=== PATIENT | female | born 1945 | race Caucasian/White ===

== ENCOUNTER 2019-05-29 08:37 | Outpatient (CLI) | payer MEDICARE ==
--- NOTE | 2019-06-21 16:23 | MMO ---
Bilateral MAMMO Bilat Screen [facility]. CLINICAL HISTORY: Patient is 74 years old and is seen for screening. The patient has no family history of breast cancer. The patient has a history of thyroid cancer. The patient has a history of Stereotatic Biopsy - benign. VIEWS: The views performed were: bilateral craniocaudal with tomosynthesis and bilateral mediolateral oblique with tomosynthesis. FILMS COMPARED: The present examination has been compared to prior imaging studies performed at [facility] on 08/15/2014 and 05/19/2016. This study has been interpreted with the assistance of computer-aided detection. MAMMOGRAM FINDINGS: There are scattered fibroglandular densities. There are stable benign appearing calcifications seen in both breasts. There are no suspicious masses, suspicious calcifications, or new areas of architectural distortion. IMPRESSION: THERE IS NO MAMMOGRAPHIC EVIDENCE OF MALIGNANCY. A ROUTINE FOLLOW-UP MAMMOGRAM IN 1 YEAR IS RECOMMENDED. THE RESULTS OF THIS EXAM WERE SENT TO THE PATIENT. ACR BI-RADS Category 2 - Benign finding MAMMOGRAPHY NOTE: 1. A negative mammogram report should not delay a biopsy if a dominant of clinically suspicious mass is present. 2. Approximately 10% to 15% of breast cancers are not detected by mammography. 3. Adenosis and dense breasts may obscure an underlying neoplasm. Reported by: DION CUELLO MD Electonically Signed: [id number]
== END 2019-05-29 08:38 | disposition home or self-care (01) ==
LOC: BICMAMMO 08:37
PROVIDERS: ATTEND Internal Medicine
DX: Z12.31 Encounter for screening mammogram for malignant neoplasm of breast (principal); Z91.89 Other specified personal risk factors, not elsewhere classified; Z85.850 Personal history of malignant neoplasm of thyroid
CPT/HCPCS: 77063; 77067

== ENCOUNTER 2019-07-05 11:23 | Outpatient (CLI) | payer MEDICARE ==
[2019-07-05 13:16] LABS: Hemoglobin 14.8 g/dL (12.0-16.0); Mean Corpuscular HGB CONC 35.4 g/dL (32.0-36.0); Mean Corpuscular Hemoglobin 30.9 pg (27.0-31.0); Mean Corpuscular Volume 87.2 fL (78.0-98.0); Mean Platelet Volume 8.6 fL (7.4-10.4); Platelet Count 224 thou/uL (130-400); RBC Distribution Width 12.4 % (11.5-14.5); Red Blood Cell (RBC) Count 4.77 mill/uL (4.20-5.40); White Blood Cell (WBC) Count 6.8 thou/uL (4.8-10.8)
[2019-07-05 13:35] LABS: Anion Gap 17 mmol/L (10-20); BUN (Urea Nitrogen) 22 mg/dL (9.8-20.1); Calc. Creatinine Clearance 0 mL/min (70-130); Calcium 9.6 mg/dL (7.8-10.44); Carbon Dioxide 24 mmol/L (23-31); Chloride 99 mmol/L (98-107); Estimated GFR-MDRD 60; Glucose 143 mg/dL (83-110); Potassium 3.9 mmol/L (3.5-5.1); Sodium 136 mmol/L (136-145)
== END 2019-07-05 11:24 | disposition home or self-care (01) ==
LOC: LABBT 11:23
PROVIDERS: ATTEND Surgery Surgery of the Hand
DX: Z01.812 Encounter for preprocedural laboratory examination (principal); G56.02 Carpal tunnel syndrome, left upper limb; M19.032 Primary osteoarthritis, left wrist
CPT/HCPCS: 80048; 85027

== ENCOUNTER 2019-07-08 05:55 | Day surgery (SDC) | payer MEDICARE ==
[2019-07-05 11:41] VITALS: BMI 33.6
[2019-07-08] MEDS ORDERED: Bupivacaine HCl 0.5%/Epinephrine 1:200,000/PF 30 ml Vial ONE (06:56)
[2019-07-08] MEDS ORDERED: Lidocaine 1% w/Epinephrine 1:100K 20 ML VIAL ONE (07:41)
[2019-07-08] MEDS ORDERED: Bupivacaine 0.25% HCL 30 ML VIAL ONE (07:41)
[2019-07-08] MEDS ORDERED: Fentanyl 100 MCG/2 ML VIAL ONE (07:48)
--- NOTE | 2019-07-08 10:51 | OP ---
DATE OF PROCEDURE: 07/08/2019 PREOPERATIVE DIAGNOSES: Left-sided recurrent carpal tunnel syndrome and left wrist arthritis. POSTOPERATIVE DIAGNOSES: Left-sided recurrent carpal tunnel syndrome and left wrist arthritis. PROCEDURES PERFORMED: 1. Left wrist median nerve neurolysis and application of a synthetic nerve wrap/Integra NeuraWrap. 2. Left wrist partial denervation with anterior and posterior interosseous neurectomies. 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 ANESTHESIA: General and local. FINDINGS: Scar tissue surrounding the median nerve, which appeared to be severely scarred and displaced radially underneath the radial leaf of the transected transverse carpal ligament and there appeared to be a mild hourglass configuration to the nerve at the carpal tunnel; left wrist arthritis. SPECIMENS: Anterior and posterior interosseous nerves left wrist. CONDITION: Stable. ESTIMATED BLOOD LOSS: Less than 10 mL. TOURNIQUET TIME: Left wrist median nerve neurolysis and application of the nerve wrap 30 minutes and the tourniquet was deflated during skin closure of this wound followed by reinflation of the tourniquet for 28 minutes to perform the posterior interosseous and anterior interosseous neurectomies, left wrist. For a total of 58 minutes of tourniquet time with at least a 15 to 20-minute break in between the procedures. INDICATIONS FOR PROCEDURE: The patient is a 74-year-old female, who was seen in my clinic for treatment of left hand numbness and tingling and left wrist pain. She appeared to be suffering from a recurrent carpal tunnel syndrome on the left side as well as left wrist arthritis. We discussed the surgical and nonsurgical treatments for each, the patient wished to proceed with surgery. I gave her a lidocaine block to the anterior and posterior interosseous nerves in the clinic in order to gauge her response to a partial wrist denervation and she had a favorable response reporting almost immediate pain relief after the lidocaine block was administered. Therefore, the decision was made today to proceed with the left wrist median nerve neurolysis and application of a Bovine synthetic nerve wrap/Integra NeuraWrap as well as partial wrist denervation anterior interosseous and posterior interosseous neurectomies. DESCRIPTION OF PROCEDURE: The patient was brought to the operating room and placed supine on the operating room table. Time-out was performed. Antibiotics had been administered. General anesthesia was induced by the Anesthesia Team. A left upper extremity tourniquet was applied. Left upper extremity was then prepped and draped under sterile aseptic conditions. Left upper extremity was exsanguinated using an Esmarch wrap and the tourniquet was inflated 250 mmHg. My attention was directed towards the left wrist median nerve neurolysis part of the procedure first. Her previous skin incision was utilized and incised and then, the incision was brought across the volar wrist flexion crease proximally in Viet's fashion. Care was taken to avoid any injury to the underlying median nerve and the median nerve was identified proximally. Care was taken only to take the skin incision skin deep. I was able to locate this median nerve proximally and then dissected free from its scar tissue, it appeared to be severely scarred around the carpal tunnel. There was an hourglass configuration to it. It was scarred onto the undersurface of the radial leaf at the previously transected transverse carpal ligament. Extreme care and caution were taken in all times in order to protect the median nerve and avoid any injury to the median nerve or nerve branches of the palmar cutaneous branch of median nerve was identified and protected at all times. The median nerve was meticulously released from all its surrounding scar tissue, then a 2 cm x 10 mm nerve wrap was prepped in saline and placed around the median nerve within the carpal tunnel and used to protect it from any other further scar tissue. I did secure the nerve wrap with a loosely tightened 7-0 Prolene suture. The wound was irrigated. There was local infiltrated into the skin and the area of the skin incision prior to making the skin incision, administered some additional local anesthetic was infiltrated at the end of the skin to help with postoperative pain. The tourniquet was deflated. Good hemostasis was ensured using a handheld Adson bipolar. The skin incision was primarily repaired using 4-0 nylon suture, all fingers returned to a normal pink color with good refill following tourniquet deflation. The left upper extremity was then exsanguinated. Again, once the skin incision was closed and then, the tourniquet was reinflated, total tourniquet time at this point was 30 minutes and it had been deflated for at least 15 to 20 minutes before proceeding with the second procedure. My attention was now directed towards wrist denervation part of the procedure. A longitudinal incision was made into the skin after local anesthetic was infiltrated into the skin and area predicted the skin incision in-line with the third metacarpal ray. Care was taken only to go skin deep and avoid injury to the surrounding nerves, tendons, and blood vessels. The extensor retinaculum was incised sharply using a fresh 15 blade scalpel. The fourth dorsal compartment tendons were protected at all times. The EPL tendon was identified and protected at all times as well. Over the radial floor of the fourth dorsal compartment, I was able to identify the posterior interosseous nerve and I resected a 1 cm portion in the nerve. I then dissected proximally within the interosseous membrane was able to be localize the anterior interosseous nerve and the portion of the anterior interosseous nerve was resected, both were sent for pathologic specimen. Good hemostasis was ensured using a handheld bipolar Adson's and the wounds were irrigated, this retinaculum was repaired over the fourth dorsal compartment tendons. Care was taken not to overtighten the repair in order to avoid strangulation of the extensor tendons. I was able to fit a freer easily underneath the repair and once it was completed and then I deflated the tourniquet, I added some additional local anesthetic and then repaired the skin incision using 4-0 nylon sutures. All fingers resumed to be normal pink color with good refill. Once the tourniquet was deflated, Xeroform was applied over the wounds along with bulky dressing, Kerlix, ABDs, and an Danny wrap. The patient was extubated and transported back to the recovery area in stable condition. I had a conversation with the patient's daughter Wade. I called her on [phone] to give her an update on her surgery, everything went well. There were no complications during the surgery. I explained the postoperative plan with the patient's daughter. The patient was discharged home on tramadol 50 mg 1 to 2 tablets p.o. q.6 hours and 30 pills were prescribed. Job ID: [id number]
== END 2019-07-08 11:10 | disposition home or self-care (01) ==
LOC: SDC 05:55
PROVIDERS: ATTEND Surgery Surgery of the Hand
PROC: 01N50ZZ Release Median Nerve, Open Approach (ICD-10-PCS; principal; 2019-07-08)
PROC: 01B50ZZ Excision of Median Nerve, Open Approach (ICD-10-PCS; 2019-07-08)
PROC: 01B60ZZ Excision of Radial Nerve, Open Approach (ICD-10-PCS; 2019-07-08)
PROC: 01U50JZ Supplement Median Nerve with Synthetic Substitute, Open Approach (ICD-10-PCS; 2019-07-08)
DX: G56.02 Carpal tunnel syndrome, left upper limb (principal); M19.032 Primary osteoarthritis, left wrist; E11.9 Type 2 diabetes mellitus without complications; Z79.899 Other long term (current) drug therapy; Z88.5 Allergy status to narcotic agent; Z88.8 Allergy status to other drugs, medicaments and biological substances
CPT/HCPCS: 88302; J0670; J0690; J3010; S0020

== ENCOUNTER 2020-12-11 08:56 | Outpatient (CLI) | payer MEDICARE ==
[2020-12-11 13:07] LABS: Hemoglobin 13.7 g/dL (12.0-15.5); Mean Corpuscular HGB CONC 34.3 g/dL (32.0-36.0); Mean Corpuscular Volume 87.3 fl (81.6-98.3); Mean Platelet Volume 11.4 fl (7.4-10.4); Platelet Count 249 10x3/uL (150-450); RBC Distribution Width 12.8 % (11.5-14.5); Red Blood Cell (RBC) Count 4.57 10x6/uL (3.90-5.03); White Blood Cell (WBC) Count 6.5 10x3/uL (3.5-10.5)
[2020-12-11 13:13] LABS: Anion Gap 17 mmol/L (10-20); BUN (Urea Nitrogen) 23 mg/dL (9.8-20.1); Calc. Creatinine Clearance 0 mL/min (70-130); Calcium 8.9 mg/dL (7.8-10.44); Carbon Dioxide 28 mmol/L (23-31); Chloride 99 mmol/L (98-107); Glucose 160 mg/dL (83-110); Potassium 3.8 mmol/L (3.5-5.1); Sodium 140 mmol/L (136-145)
[2020-12-11 13:21] LABS: PTT 27.9 sec (22.0-33.0); Prothrombin Time 10.3 sec (9.5-12.1)
[2020-12-11 23:52] LABS: SARS-CoV-2 PCR by NAA Not Detected (NotDetected)
== END 2020-12-11 08:57 | disposition home or self-care (01) ==
LOC: LABBT 08:56
PROVIDERS: ATTEND Internal Medicine Cardiovascular Disease
DX: Z01.818 Encounter for other preprocedural examination (principal); Z20.822 Contact with and (suspected) exposure to COVID-19
CPT/HCPCS: 80048; 85027; 85610; 85730; 93005; U0003; U0005; 87635; 93010

== ENCOUNTER 2020-12-14 06:00 | Observation (INO) | payer MEDICARE ==
[2020-12-10 14:37] VITALS: BMI 31.9
[2020-12-14] MEDS ORDERED: Heparin 10,000 UNITS/ 10 ML VIAL ONE (06:45)
[2020-12-14] MEDS ORDERED: Lidocaine 1% (PF) 30 ML VIAL ONE ×2 (06:46→06:59)
[2020-12-14] MEDS ORDERED: Fentanyl 100 MCG/2 ML VIAL ONE ×3 (07:08→11:45)
[2020-12-14] MEDS ORDERED: Midazolam HCl 2 mg/2 ml Vial ONE (07:30)
[2020-12-14] MEDS ORDERED: Lidocaine 1% PF 5 ML VIAL ONE (07:47)
[2020-12-14] MEDS ORDERED: Ondansetron PF 4 MG/2 ML Vial ONE (07:47)
[2020-12-14] MEDS ORDERED: Rocuronium Bromide 10 MG/ML (10ML VIAL) ONE (07:47)
[2020-12-14] MEDS ORDERED: PHENYLEPHRINE-NS 100 MCG/ML 10 ML SYRINGE ONE (07:47)
[2020-12-14] MEDS ORDERED: Dexamethasone 20 MG/5 ML VIAL ONE (07:47)
[2020-12-14] MEDS ORDERED: PROPOFOL 200 MG/20 ML VIAL ONE (07:47)
[2020-12-14] MEDS ORDERED: Heparin 25,000 units/D5W 500 ML ONE (07:54)
[2020-12-14] MEDS ORDERED: Isoproterenol 0.2 MG/1 ML AMP ONE (10:25)
[2020-12-14] MEDS ORDERED: Protamine Sulfate 50 MG/5 ML VIAL ONE (10:47)
[2020-12-14] MEDS ORDERED: SUGAMMADEX SODIUM 200 MG/2 ML VIAL ONE (10:55)
[2020-12-14] MEDS ORDERED: Ondansetron HCl/PF 4 MG/2 ML Vial IVP PRN (11:34)
[2020-12-14] MEDS ORDERED: HYDROmorphone 2 MG/ML VIAL SLOW IVP PRN (11:34)
[2020-12-14] MEDS ORDERED: Promethazine HCl 25 MG/ML VIAL SLOW IVP PRN (11:34)
[2020-12-14] MEDS ORDERED: Promethazine HCl 25 MG/ML VIAL IM PRN (11:34)
[2020-12-14] MEDS ORDERED: Ketorolac Tromethamine 30 MG/ML VIAL IVP PRN (12:15)
[2020-12-14] MEDS ORDERED: Acetaminophen/Codeine 30-300mg Tablet PO PRN ×2 (12:30)
[2020-12-14] MEDS: metFORMIN 500 MG TAB PO SCH (18:23)
[2020-12-14] MEDS ORDERED: Cepastat Lozenges 1 LOZ PO PRN (18:33)
[2020-12-14] MEDS ORDERED: Simvastatin 5 MG TAB PO SCH (21:00)
[2020-12-14] MEDS ORDERED: Lisinopril 5 MG TAB PO SCH (21:00)
[2020-12-14] MEDS: Apixaban 5 MG TAB PO SCH (21:21)
[2020-12-14] MEDS: Sucralfate 1 GM TAB PO SCH (21:22)
[2020-12-15] MEDS ORDERED: Sucralfate 1 GM TAB PO SCH (03:45)
[2020-12-15] MEDS ORDERED: Levothyroxine Sodium 112 MCG TAB PO SCH (06:00)
[2020-12-15] MEDS ORDERED: Levothyroxine Sodium 25 MCG TAB PO SCH (06:00)
[2020-12-15] MEDS: Sucralfate 1 GM TAB PO SCH ×2 (08:08→12:11)
[2020-12-15] MEDS: Apixaban 5 MG TAB PO SCH (08:09)
[2020-12-15] MEDS: metFORMIN 500 MG TAB PO SCH (08:09)
[2020-12-15] MEDS ORDERED: Carvedilol 25 MG TAB PO SCH (09:00)
[2020-12-15] MEDS ORDERED: Montelukast Sodium 10 mg Tablet PO SCH (09:00)
[2020-12-15] MEDS ORDERED: Multivit, Therapeutic 1 TAB PO SCH (09:00)
[2020-12-15] MEDS ORDERED: Triamterene/Hydrochlorothiazide 37.5 mg/25 mg Tablet PO SCH (09:00)
[2020-12-15 12:16] VITALS: BP 83/43; TEMP 98.8
== END 2020-12-15 14:21 | disposition home or self-care (01) ==
LOC: CCL 06:00 → 2SW 11:36
PROVIDERS: ADMIT Internal Medicine Cardiovascular Disease; ATTEND Internal Medicine Cardiovascular Disease
PROC: 02583ZZ Destruction of Conduction Mechanism, Percutaneous Approach (ICD-10-PCS; principal; 2020-12-14)
PROC: 02K83ZZ Map Conduction Mechanism, Percutaneous Approach (ICD-10-PCS; 2020-12-14)
PROC: 4A023FZ Measurement of Cardiac Rhythm, Percutaneous Approach (ICD-10-PCS; 2020-12-14)
PROC: 4A0234Z Measurement of Cardiac Electrical Activity, Percutaneous Approach (ICD-10-PCS; 2020-12-14)
DX: I48.0 Paroxysmal atrial fibrillation (principal); I10 Essential (primary) hypertension; E89.0 Postprocedural hypothyroidism; D68.9 Coagulation defect, unspecified; E11.9 Type 2 diabetes mellitus without complications; E78.5 Hyperlipidemia, unspecified; K21.9 Gastro-esophageal reflux disease without esophagitis; Z79.01 Long term (current) use of anticoagulants; Z79.84 Long term (current) use of oral hypoglycemic drugs; Z79.899 Other long term (current) drug therapy; Z88.5 Allergy status to narcotic agent; Z88.8 Allergy status to other drugs, medicaments and biological substances; Z91.041 Radiographic dye allergy status; Z95.818 Presence of other cardiac implants and grafts
CPT/HCPCS: 76942; 82962 ×2; 85347 ×2; 93005 ×2; 93613; 93622; 93623; 93656; 93657; 93662; 96374; C1732 ×3; C1759; G0378 ×2; 36416; 93010; J1100; J1644; J1885; J2001; J2250; J2405; J2704; J2720; J3010

== ENCOUNTER 2021-01-22 09:05 | Outpatient (CLI) | payer MEDICARE | END 2021-01-22 09:06 | disposition home or self-care (01) | LOC: BICMAMMO 09:05 | PROVIDERS: ATTEND Internal Medicine | DX: Z12.31 Encounter for screening mammogram for malignant neoplasm of breast (principal); Z85.850 Personal history of malignant neoplasm of thyroid | CPT/HCPCS: 77063; 77067 ==

== ENCOUNTER 2021-07-15 08:15 | Outpatient (CLI) | payer MEDICARE ==
[2021-07-15 10:36] LABS: Hemoglobin 13.9 g/dL (12.0-15.5); Mean Corpuscular HGB CONC 34.8 g/dL (32.0-36.0); Mean Corpuscular Hemoglobin 30.3 pg (27.0-33.0); Mean Corpuscular Volume 87.1 fl (81.6-98.3); Mean Platelet Volume 11.1 fl (7.4-10.4); Platelet Count 231 10x3/uL (150-450); RBC Distribution Width 13.1 % (11.5-14.5); Red Blood Cell (RBC) Count 4.59 10x6/uL (3.90-5.03); White Blood Cell (WBC) Count 7.2 10x3/uL (3.5-10.5)
[2021-07-15 10:41] LABS: PTT 29.3 sec (22.0-33.0); Prothrombin Time 11.3 sec (9.5-12.1)
[2021-07-15 10:51] LABS: Anion Gap 17 mmol/L (10-20); BUN (Urea Nitrogen) 24 mg/dL (9.8-20.1); Calc. Creatinine Clearance 0 mL/min (70-130); Calcium 8.9 mg/dL (7.8-10.44); Carbon Dioxide 27 mmol/L (23-31); Chloride 100 mmol/L (98-107); Glucose 147 mg/dL (83-110); Potassium 3.8 mmol/L (3.5-5.1); Sodium 140 mmol/L (136-145)
[2021-07-15 17:30] LABS: SARS-CoV-2 PCR by NAA Not Detected (NotDetected)
== END 2021-07-15 08:16 | disposition home or self-care (01) ==
LOC: LABBT 08:15
PROVIDERS: ATTEND Internal Medicine Cardiovascular Disease
DX: Z01.812 Encounter for preprocedural laboratory examination (principal); Z20.822 Contact with and (suspected) exposure to COVID-19
CPT/HCPCS: 80048; 85027; 85610; 85730; U0003; U0005

== ENCOUNTER 2021-07-19 06:20 | Day surgery (SDC) | payer MEDICARE ==
[2021-07-15 14:35] VITALS: BMI 31.7
[2021-07-19] MEDS ORDERED: Fentanyl 100 MCG/2 ML VIAL ONE (06:47)
[2021-07-19] MEDS ORDERED: Ketamine 50 MG/ML (10ML VIAL) ONE (06:48)
[2021-07-19] MEDS ORDERED: Phenylephrine 10 MG/ML VIAL ONE (06:48)
[2021-07-19] MEDS ORDERED: Heparin 10,000 UNITS/ 10 ML VIAL ONE (06:57)
[2021-07-19] MEDS ORDERED: Heparin 25,000 units/D5W 500 ML ONE (06:57)
[2021-07-19] MEDS ORDERED: Isoproterenol 0.2 MG/1 ML AMP ONE (07:02)
[2021-07-19] MEDS ORDERED: Succinylcholine 200 MG/10 ml SYRINGE FS ONE (07:29)
[2021-07-19] MEDS ORDERED: Lidocaine 1% PF 5 ML VIAL ONE (07:29)
[2021-07-19] MEDS ORDERED: PROPOFOL 200 MG/20 ML VIAL ONE (07:29)
[2021-07-19] MEDS ORDERED: Calcium Chloride 1 GM/10 ML Abboject SYRINGE ONE (07:29)
[2021-07-19] MEDS ORDERED: Dexamethasone 20 MG/5 ML VIAL ONE (07:29)
[2021-07-19] MEDS ORDERED: Glycopyrrolate 0.2 MG/ML 5 ML SYRINGE ONE (07:29)
[2021-07-19] MEDS ORDERED: Rocuronium Bromide 10 MG/ML (10ML VIAL) ONE (07:29)
[2021-07-19] MEDS ORDERED: Ondansetron PF 4 MG/2 ML Vial ONE (07:29)
[2021-07-19] MEDS ORDERED: SUGAMMADEX SODIUM 200 MG/2 ML VIAL ONE (08:31)
[2021-07-19] MEDS ORDERED: Protamine Sulfate 50 MG/5 ML VIAL ONE (10:39)
[2021-07-19] MEDS ORDERED: Furosemide 40 MG TAB PO PRN (14:57)
[2021-07-19] MEDS ORDERED: Potassium Chloride 20 MEQ TAB PO PRN (14:57)
[2021-07-19] MEDS ORDERED: Sucralfate 1 GM TAB PO SCH (17:00)
== END 2021-07-19 14:51 | disposition home or self-care (01) ==
LOC: SDC 06:20
PROVIDERS: ATTEND Internal Medicine Cardiovascular Disease
PROC: B244ZZ3 Ultrasonography of Right Heart, Intravascular (ICD-10-PCS; principal; 2021-07-19)
PROC: 02583ZZ Destruction of Conduction Mechanism, Percutaneous Approach (ICD-10-PCS; 2021-07-19)
PROC: 02K83ZZ Map Conduction Mechanism, Percutaneous Approach (ICD-10-PCS; 2021-07-19)
PROC: 4A023FZ Measurement of Cardiac Rhythm, Percutaneous Approach (ICD-10-PCS; 2021-07-19)
PROC: 4A0234Z Measurement of Cardiac Electrical Activity, Percutaneous Approach (ICD-10-PCS; 2021-07-19)
DX: I48.0 Paroxysmal atrial fibrillation (principal); I48.4 Atypical atrial flutter; E89.0 Postprocedural hypothyroidism; D66 Hereditary factor VIII deficiency; E11.9 Type 2 diabetes mellitus without complications; I10 Essential (primary) hypertension; E78.5 Hyperlipidemia, unspecified; K21.9 Gastro-esophageal reflux disease without esophagitis; Z86.73 Personal history of transient ischemic attack (TIA), and cerebral infarction without residual deficits; Z79.01 Long term (current) use of anticoagulants; Z79.82 Long term (current) use of aspirin; Z79.84 Long term (current) use of oral hypoglycemic drugs; Z79.899 Other long term (current) drug therapy; Z88.8 Allergy status to other drugs, medicaments and biological substances; Z88.5 Allergy status to narcotic agent; Z91.041 Radiographic dye allergy status; Z91.048 Other nonmedicinal substance allergy status; Z95.818 Presence of other cardiac implants and grafts; Z98.890 Other specified postprocedural states
CPT/HCPCS: 85347 ×2; 93005; 93613; 93623; 93656; 93657; 93662; C1732 ×2; C1759; C1884; J1100; J1644; J2370; J2405; J2704; J2720; J3010

== ENCOUNTER 2022-01-24 10:08 | Outpatient (CLI) | payer MEDICARE | END 2022-01-24 10:09 | disposition home or self-care (01) | LOC: BICMAMMO 10:08 | PROVIDERS: ATTEND Internal Medicine | DX: Z12.31 Encounter for screening mammogram for malignant neoplasm of breast (principal); Z85.850 Personal history of malignant neoplasm of thyroid; Z91.89 Other specified personal risk factors, not elsewhere classified | CPT/HCPCS: 77063; 77067 ==